=== PATIENT | female | born 1980 | race Caucasian/White ===

== ENCOUNTER 2020-04-22 10:40 | Emergency (ER) | payer OTHER ==
[2020-04-22] MEDS ORDERED: Ibuprofen 800 MG TAB ONE (11:10)
[2020-04-22] MEDS ORDERED: Adacel (T-DAP) 0.5 ML SYRINGE ONE (11:10)
--- NOTE | 2020-04-22 11:28 | RAD ---
Exam:Right hand 3 views HISTORY: Stuck nail in hand on Monday COMPARISON: None FINDINGS: No radiopaque foreign body. No fracture, cortical irregularity or periosteal reaction. IMPRESSION: No fracture or radiopaque foreign body.
== END 2020-04-22 11:44 | disposition home or self-care (01) ==
LOC: MADERS 10:40
DX: S61.431A Puncture wound without foreign body of right hand, initial encounter (principal); L03.113 Cellulitis of right upper limb; E11.9 Type 2 diabetes mellitus without complications; F41.9 Anxiety disorder, unspecified; F32.9 Major depressive disorder, single episode, unspecified; Z79.899 Other long term (current) drug therapy; W26.9XXA Contact with unspecified sharp object(s), initial encounter
CPT/HCPCS: 90471; 90715

== ENCOUNTER 2020-06-19 12:56 | Emergency (ER) | payer OTHER ==
[2020-06-19] MEDS ORDERED: Meclizine HCl 25 MG TAB ONE (14:12)
[2020-06-20 14:06] LABS: SARS-CoV-2 MS2 Positive; SARS-CoV-2 N Gene Negative; SARS-CoV-2 S Gene Negative; SARS-CoV-2 by NAA Not Detected (NotDetected); SARS-CoV-2 orf1ab Negative
== END 2020-06-19 16:34 | disposition home or self-care (01) ==
LOC: MADERS 12:56
DX: H81.399 Other peripheral vertigo, unspecified ear (principal); R11.0 Nausea; J02.9 Acute pharyngitis, unspecified; Z20.828 Contact with and (suspected) exposure to other viral communicable diseases; E11.9 Type 2 diabetes mellitus without complications; F41.9 Anxiety disorder, unspecified; F32.9 Major depressive disorder, single episode, unspecified; Z79.899 Other long term (current) drug therapy; Z79.84 Long term (current) use of oral hypoglycemic drugs
CPT/HCPCS: 87635; 99284; U0003

== ENCOUNTER 2021-01-15 11:50 | Emergency (ER) | payer OTHER ==
[2021-01-15 12:24] LABS: Bilirubin Negative (Negative); Blood, Urine Large (Negative); Clarity Cloudy (Clear); Glucose, Urine (Dipstick) Negative (Negative); Ketone, Urine Negative (Negative); Leukocyte Small (Negative); Nitrite Negative (Negative); Protein, Urine (Dipstick) 100 mg/dL (Neg-Trace); Urobilinogen 0.2 mg/dL (Less than 2)
[2021-01-15 12:33] LABS: RBC/HPF Greater than 50 HPF (0-3); WBC/HPF Greater than 50 HPF (0-3)
[2021-01-15 12:34] LABS: Bacteria/HPF 1+ HPF (None Seen)
[2021-01-15 12:41] LABS: Pregnancy Test - Urine (BHCG) Negative (Negative); Pregu Control Background? CLEAR/WHITE (CLR/WHITE); Pregu Control Bar Appear? YES (CONTROL BAR)
[2021-01-15] MEDS ORDERED: Phenazopyridine HCl 97.5 MG TABLET ONE (12:47)
[2021-01-15] MEDS ORDERED: cefTRIAXone\\ROCEPHIN 1 GM VIAL ONE (12:47)
[2021-01-15] MEDS ORDERED: Lidocaine 1% 20 ML MDV ONE (12:47)
[2021-01-15] MEDS ORDERED: Ondansetron ODT 4 MG TAB ONE (13:11)
== END 2021-01-15 13:39 | disposition home or self-care (01) ==
LOC: MADERS 11:50
DX: N39.0 Urinary tract infection, site not specified (principal); E11.9 Type 2 diabetes mellitus without complications; Z79.84 Long term (current) use of oral hypoglycemic drugs
CPT/HCPCS: 81003; 81015; 81025; 96372; 99284; J0696; Q0162

== ENCOUNTER 2021-03-28 13:22 | Emergency (ER) | payer OTHER ==
[2021-03-28] MEDS ORDERED: Ketorolac Tromethamine 30 MG/ML VIAL ONE (13:46)
== END 2021-03-28 14:10 | disposition home or self-care (01) ==
LOC: MADERS 13:22
DX: S39.012A Strain of muscle, fascia and tendon of lower back, initial encounter (principal); E11.9 Type 2 diabetes mellitus without complications; Z79.84 Long term (current) use of oral hypoglycemic drugs; W01.0XXA Fall on same level from slipping, tripping and stumbling without subsequent striking against object, initial encounter
CPT/HCPCS: 72100; 96372; J1885